=== PATIENT | male | born 1990 | race Hispanic/Latino ===

== ENCOUNTER 2020-02-27 14:27 | Emergency (ER) | payer OTHER ==
[2020-02-27] MEDS ORDERED: TETANUS, DIPHTHERIA TOX,ADULT (TDVAX) 0.5 ML VIAL IM ONE (14:35)
[2020-02-27] MEDS ORDERED: Sodium Bicarbonate 2.5 MEQ/5 ML VIAL ONE (14:42)
[2020-02-27] MEDS ORDERED: Lidocaine 1% (PF) 30 ML VIAL ONE (14:42)
[2020-02-27] MEDS ORDERED: Bacitracin 1 PK ONE (14:49)
== END 2020-02-27 15:10 | disposition home or self-care (01) ==
LOC: NAV ERS 14:27
DX: S51.811A Laceration without foreign body of right forearm, initial encounter (principal); W26.9XXA Contact with unspecified sharp object(s), initial encounter
CPT/HCPCS: 12002; 90471; 90714; J2001

== ENCOUNTER 2020-03-07 12:03 | Emergency (ER) | payer OTHER | END 2020-03-07 12:16 | disposition home or self-care (01) | LOC: NAV ERS 12:03 | DX: S51.811D Laceration without foreign body of right forearm, subsequent encounter (principal); X58.XXXD Exposure to other specified factors, subsequent encounter ==